=== PATIENT | male | born 1950 | race Caucasian/White ===

== ENCOUNTER 2024-04-08 19:56 | Inpatient (IN) | payer OTHER ==
[~2024-04-08] VITALS: Ht 167.6 cm; Wt 118.0 kg
[~2024-04-08 19:56] MED LIST: ALL DAY ALLERGY10 M3 PO; ALLFEN400 MG PO; ASPIRIN 81M81 MG/TA2 PO; ASPIRIN E.C. 8181 MG PO; COZAAR 25MG25 MG/TAB PO; DEMADEX10 MG PO; EPA FISH OIL1 SGL PO; FLAGYL500 MG PO; FOLIC ACID 11 MG/TA1 PO; IPRATROPIUM BROM3 M1 IH; JARDIANCE25; JARDIANCE25 PO; LOPRESSOR100 MG PO; MELATONIN3 M1 PO; MELATONIN5 M1 SL; MIRALAX PA17 GM/Dose PO; MUCUS RELIEF400 M1 PO; MULTI VITAMINS1 TAB PO; OMEGA-3 1000 MG1 CAP PO; OMNICEF 300MG300 MG PO; OPTIVE SENSITI0.4 ML OP; PERIACTIN 4MG TA4 MG PO; PREDNISONE20 MG PO; REFRESH TEARS 330 ML OP; SODIUM BICARBO650 MG PO; TYLENOL 500MG500 MG PO; ZOCOR 10MG10 MG PO; ZOCOR 20MG20 MG PO; ZOLOFT 100MG100 MG PO
[2024-04-09] MEDS ORDERED: Gadoterate 20 ML VIAL IV ONE (14:00)
--- NOTE | 2024-04-14 03:56 | NUR ---
An Electronic Health Record (EHR) downtime even occurred during this patient's care. For legal medical record information generated during the downtime period, please reference the patient's legal medical record. Paper or scanned documentation has been incorporated into the legal medical record which is maintained in accordance with Health Information Management (HIM) and record retention policies.
[2024-04-14 04:00] VITALS: BP 154/82; PULSE 70; TEMP 98.5
[2024-04-14] MEDS ORDERED: Albuterol/Ipratropium 3 MG-0.5 MG/3 ML Neb Soln IH PRN (05:00)
[2024-04-14] MEDS ORDERED: Acetaminophen 325 MG TAB PO PRN (05:00)
[2024-04-14] MEDS ORDERED: Morphine 4 MG/ML VIAL IV PRN (05:15)
[2024-04-14] MEDS ORDERED: Benzonatate 100 MG CAP PO PRN (05:15)
[2024-04-14] MEDS ORDERED: Docusate Sodium 100 MG CAP PO PRN (05:15)
[2024-04-14] MEDS ORDERED: Sennosides/Docusate 8.6-50 MG TAB PO PRN (05:15)
[2024-04-14] MEDS ORDERED: hydrALAZINE 20 MG/ML 1 ML VIAL IV PRN (05:15)
[2024-04-14] MEDS ORDERED: Albuterol/Ipratropium 3 MG-0.5 MG/3 ML Neb Soln IH SCH (07:00)
[2024-04-14] MEDS ORDERED: Formoterol Neb Soln 20 MCG/2 ML UD IH SCH (07:00)
[2024-04-14] MEDS ORDERED: Albuterol 0.083% Neb Soln 2.5 MG/3 ML UD IH SCH (07:00)
[2024-04-14] MEDS ORDERED: Budesonide Neb Susp 0.5 MG/2 ML AMP IH SCH (07:00)
[2024-04-14 07:22] VITALS: BP 124/69; PULSE 72; TEMP 97.6
[2024-04-14] MEDS ORDERED: Insulin Lispro (HumaLOG) SQ SCH (08:00)
[2024-04-14] MEDS ORDERED: predniSONE 10 MG TAB PO SCH (08:00)
[2024-04-14] MEDS ORDERED: Heparin Sodium 5000 UNITS/ML SUBCUTANEOUSLY Q8HR SQ SCH (08:00)
--- NOTE | 2024-04-14 08:26 | NUR ---
PATIENT SITTING UP IN CHAIR EATING BREAKFAST. PATIENT APPEARS TO BE HAVING DYSPNEA AT REST. THIS NURSE CHECKED PATIENT'S O2 SAT. 02 WAS AT 88% ON RA. THIS NURSE APPLIED 2L OF 02 VIA NC. 02 INCREASED TO 93%. PATIENT IS ALSO PRODUCING THICK, YELLOW SPUTUM. SCHEDULED DOXY AND MUCINEX ADMINISTERED PER JAN. ALL NEEDS MET AT THIS TIME. CALL LIGHT WITHIN REACH. WILL MONITOR
[2024-04-14] MEDS ORDERED: Losartan 25 MG TAB PO SCH (09:00)
[2024-04-14] MEDS ORDERED: Sodium Bicarbonate 650 MG TAB PO SCH (09:00)
[2024-04-14] MEDS ORDERED: Loratadine 10 MG TAB PO SCH (09:00)
[2024-04-14] MEDS ORDERED: Metoprolol Tartrate 50 MG TAB PO SCH (09:00)
[2024-04-14] MEDS ORDERED: Doxycycline Monohydrate 100 MG CAP PO SCH (09:00)
[2024-04-14] MEDS ORDERED: LIPITOR 80MG80 MG PO (09:13)
[2024-04-14] MEDS ORDERED: PREDNISONE10 MG PO (09:15)
[2024-04-14 11:13] VITALS: BP 138/93; PULSE 65; TEMP 97.9
--- NOTE | 2024-04-14 11:37 | NUR ---
THIS NURSE GAVE PATIENT DISCHARGE INSTRUCTIONS. ALL QUESTIONS ANSWERED. THIS NURSE DISCONTINUED INT SITE FOR DISCHARGE. NO REDNESS, DRAINAGE, OR EDEMA NOTED. PATIENT DENIES QUESTIONS OR CONCERNS.
--- NOTE | 2024-04-14 12:00 | NUR ---
PATIENT ESCORTED OFF UNIT VIA WHEELCHAIR. ALL BELONGINGS WITH PATIENT.
--- NOTE | 2024-04-14 13:15 | NUR ---
face worker was notified by the [facility] that patient will have authorization for PT and OT with his current home health agency - [facility]. SW contacted patient's son whom explained he would be available to be home and assist patient out of the vehicle when he returns home from hospital but he is unable to drive to [place]. SW explained they can arrange an uber to transport. SW met with patient and notified him that his son will be home to assist with him getting out of the vehicle. SW reviewed the important message from Medicare with patient. Patient understood, signed form. SW made copy, placed original in chart and provided copy to patient. SW faxed discharge orders and clinical updates to [facility]. Discharge plan: Home with Home Health - [facility]
[2024-04-14] MEDS ORDERED: Cyproheptadine 4 MG TAB PO SCH (21:00)
[2024-04-14] MEDS ORDERED: Sertraline 100 MG TAB PO SCH (21:00)
[2024-04-14] MEDS ORDERED: Atorvastatin 80 MG TAB PO SCH (21:00)
[2024-04-15] MEDS ORDERED: predniSONE 10 MG TAB PO SCH (09:00)
[2024-04-17] MEDS ORDERED: predniSONE 20 MG TAB PO SCH (09:00)
== END 2024-04-14 12:00 | disposition home health service (06) | DRG 64 ==
LOC: COL.ER 19:56 → MEDICAL 23:01 → COL.ER 23:01 → MEDICAL 04-14 12:00
PROVIDERS: ADMIT Internal Medicine
DX: I63.9 Cerebral infarction, unspecified (principal); J96.01 Acute respiratory failure with hypoxia; G81.94 Hemiplegia, unspecified affecting left nondominant side; J44.1 Chronic obstructive pulmonary disease with (acute) exacerbation; N17.9 Acute kidney failure, unspecified; I13.0 Hypertensive heart and chronic kidney disease with heart failure and stage 1 through stage 4 chronic kidney disease, or unspecified chronic kidney disease; R27.0 Ataxia, unspecified; I50.9 Heart failure, unspecified; N18.9 Chronic kidney disease, unspecified; I25.10 Atherosclerotic heart disease of native coronary artery without angina pectoris; Z95.5 Presence of coronary angioplasty implant and graft; G47.33 Obstructive sleep apnea (adult) (pediatric); E78.5 Hyperlipidemia, unspecified; E11.40 Type 2 diabetes mellitus with diabetic neuropathy, unspecified; Z79.4 Long term (current) use of insulin; K21.9 Gastro-esophageal reflux disease without esophagitis; F43.10 Post-traumatic stress disorder, unspecified; F32.A Depression, unspecified
CPT/HCPCS: A9500-JZ; A9575; J1815; J2704; J7512

== ENCOUNTER 2024-04-21 17:00 | Observation (INO) | payer OTHER ==
[~2024-04-21] VITALS: Ht 167.6 cm; Wt 110.6 kg
[~2024-04-21 17:00] MED LIST changes: +LIPITOR 80MG80 MG PO; +PREDNISONE10 MG PO
[2024-04-21] MEDS ORDERED: Albuterol/Ipratropium 3 MG-0.5 MG/3 ML Neb Soln IH SCH (17:15)
[2024-04-21 17:36] LABS: CALCIUM 9.1 mg/dL (8.4-10.2); CREATININE, serum 2.78 mg/dL (0.72-1.25); POTASSIUM 5.4 mEq/L (3.5-4.5); TOTAL PROTEIN 6.5 g/dl (6.2-8.1)
[2024-04-21 17:39] LABS: BASO % 0.1 % (0.0-2.0); EOS % 0.2 % (0.0-4.0); GRAN # 12.3 K/mm3 (1.4-6.5); HEMOGLOBIN 11.4 g/dl (13.5-18.0); LYMPH # 0.9 K/mm3 (1.2-3.4); LYMPH % 6.4 % (20.0-51.0); MEAN CELL VOLUME 88 fl (80.0-100.0); MEAN CORPUSCULAR HEMOGLOBIN 29 pg (27-31); MEAN CORPUSCULAR HGB CONC 32 g/dl (33.0-37.0); MEAN PLATELET VOLUME 10.4 fl (7.4-10.4); MONO # 0.6 K/mm3 (0.1-0.6); MONO % 4.4 % (1.7-9.3); PLATELET COUNT 251 K/mm3 (130-400); REDCELL DISTRIBUTION WIDTH-CV 13.9 % (11.5-14.5)
[2024-04-21 17:42] LABS: HEMATOCRIT 35.2 % (42.0-52.0); TROPONIN-I 0.012 ng/mL (0.00-0.033)
[2024-04-21 18:02] LABS: BILIRUBIN,TOTAL 0.7 mg/dL (0.2-1.2)
[2024-04-21 18:51] LABS: COLLECTION METHOD CLEAN CATCH
[2024-04-21 18:59] LABS: URINE APPEARANCE CLEAR (CLEAR/HAZY); URINE BLOOD NEGATIVE (NEGATIVE); URINE COLOR YELLOW (YELLOW); URINE GLUCOSE 3+ (NEGATIVE); URINE KETONE NEGATIVE (NEGATIVE); URINE NITRATE NEGATIVE (NEGATIVE); URINE PROTEIN(semi-quant) 2+ (NEGATIVE)
[2024-04-21] MEDS ORDERED: cefTRIAXone 1 G in Water For Injection,Sterile 10 ML IV ONE (19:00)
[2024-04-21] MEDS ORDERED: Azithromycin 500 MG in NS 250 ML IV SCH (19:15)
[2024-04-21] MEDS ORDERED: Furosemide 40 MG/4 ML VIAL IV ONE (19:15)
[2024-04-21] MEDS ORDERED: Acetaminophen 500 MG TAB PO PRN (20:30)
[2024-04-21] MEDS ORDERED: Ondansetron 4 MG/2 ML VIAL IV PRN (20:30)
[2024-04-21] MEDS ORDERED: Polyethylene Glycol 3350 17 GM PDS PO PRN (20:30)
[2024-04-21] MEDS ORDERED: predniSONE 20 MG TAB PO SCH (20:33)
--- NOTE | 2024-04-21 20:35 | NUR ---
Report recieved from Elizabeth in ED. No questions at this time.
--- NOTE | 2024-04-21 20:45 | NUR ---
Patient arrived to room 218 with belongings at this time. Denies any pain at this time. Food provided. Assessment and med rec complete. Patient has a large, dark bruise all the way across his chest from loop recorder placement and some bruising to lower abd from heparin injections from previous visit. Patient also has some bruising to his feet. Oriented patient to room. Call light and personal items in reach. Bed in low position and bed alarm on.
[2024-04-21 20:50] VITALS: BP 152/76; PULSE 75; TEMP 97.9
[2024-04-21 20:55] VITALS: BP_SYST 158
[2024-04-21] MEDS ORDERED: Insulin Lispro (HumaLOG) SQ SCH (21:10)
[2024-04-21] MEDS ORDERED: Dextrose (Glucose) 15 GM (4 x 3.75 GM) Chewable TABLET PACK PO PRN (21:15)
[2024-04-21] MEDS ORDERED: Dextrose 50% Water 25 GM/50 ML SYRINGE IV PRN (21:15)
[2024-04-21] MEDS ORDERED: Glucagon 1 MG VIAL IM PRN (21:15)
[2024-04-21 23:30] VITALS: BP 158/84; PULSE 77; TEMP 98.5
[2024-04-22] VITALS (13 sets, daily range): BP systolic 126–177; BP diastolic 61–84; PULSE 63–81; TEMP 97.6–98.1
[2024-04-22] MEDS ORDERED: Heparin 5,000 UNITS/ML 1 ML VIAL SQ SCH
--- NOTE | 2024-04-22 05:10 | NUR ---
Assissted patient to bathroom and back to bed x1 assisst w/ walker. Patient is unsteady but can walk with walker. No events over night. Call light and personal items in reach. Bed in low position and bed alarm on.
[2024-04-22] MEDS ORDERED: Albuterol/Ipratropium 3 MG-0.5 MG/3 ML Neb Soln IH SCH (06:44)
[2024-04-22] MEDS ORDERED: Albuterol 0.083% Neb Soln 2.5 MG/3 ML UD IH PRN (06:45)
[2024-04-22 06:50] LABS: MEAN CELL VOLUME 88 fl (80.0-100.0); MEAN CORPUSCULAR HEMOGLOBIN 29 pg (27-31); MEAN CORPUSCULAR HGB CONC 33 g/dl (33.0-37.0); MEAN PLATELET VOLUME 10.3 fl (7.4-10.4); PLATELET COUNT 225 K/mm3 (130-400); RED BLOOD COUNT 3.78 M/mm3 (4.20-5.60); REDCELL DISTRIBUTION WIDTH-CV 13.5 % (11.5-14.5)
[2024-04-22 06:52] LABS: HEMATOCRIT 33.1 % (42.0-52.0)
[2024-04-22] MEDS ORDERED: Budesonide Neb Susp 0.5 MG/2 ML AMP IH SCH (07:00)
[2024-04-22] MEDS ORDERED: Formoterol Neb Soln 20 MCG/2 ML UD IH SCH (07:00)
[2024-04-22 07:13] LABS: CALCIUM 9.2 mg/dL (8.4-10.2); CREATININE, serum 2.81 mg/dL (0.72-1.25); POTASSIUM 5.4 mEq/L (3.5-4.5)
[2024-04-22 08:32] LABS: BAND 4 % (0-10); LYMPHOCYTE 6 % (20.0-51.0); NEUTROPHILS 90 % (42.0-75.2); PLATELET ESTIMATE NORMAL (NORMAL)
--- NOTE | 2024-04-22 08:50 | NUR ---
Patient resting in bed, alert and oriented x 4, weakness on left side. States uses a wheelchair at home but walker for support and bedside commode. RA. Finished all his breakfast tray. Assessment completed, meds given. No further needs at this time. Call light within reach.
[2024-04-22] MEDS ORDERED: LIPITOR 80MG80 MG PO (10:15)
[2024-04-22] MEDS ORDERED: PROAIR HFA0.09 MG/AC IH (10:35)
[2024-04-22] MEDS ORDERED: TESSALON P100 MG/CAP PO (10:36)
[2024-04-22] MEDS ORDERED: Metoprolol Tartrate 50 MG TAB PO SCH (12:06)
[2024-04-22] MEDS ORDERED: Losartan 25 MG TAB PO SCH (12:06)
[2024-04-22] MEDS ORDERED: Benzonatate 100 MG CAP PO PRN (12:15)
[2024-04-22] MEDS ORDERED: Carboxymethylcellulose PF Ophth 0.4 ML DROPPERETTE OP PRN (12:15)
[2024-04-22] MEDS ORDERED: Melatonin 3 MG TAB PO PRN (12:15)
[2024-04-22] MEDS ORDERED: guaiFENesin Oral Soln 200 MG/10 ML UD PO PRN (12:15)
--- NOTE | 2024-04-22 12:57 | NUR ---
Door Trimmer and Letty Carrasco met with patient to discuss discharge planning. Patient lives in an apartment here in [place] and stated his son, Buzz sometimes stays with him. Patient goes to the [facility] for primary care and has medications mailed to his home. Patient reported no stairs in or to his apartment and he uses a wheelchair for ambulation. Patient stated he is independent with transfers and all other ADLS. Patient does have issues with transportation and stated that has been ongoing. Patient has both [employer] and Medicare. Patient is still getting Home Health services through [facility] and plans to return home at time of discharge. Letty Carrasco contacted [facility] and faxed updates. JAMSHID also contacted JAMSHID Candelario at the [facility] and left a message. Discharge Plan: Home with [facility], may need assistance with transportation home
--- NOTE | 2024-04-22 13:55 | NUR ---
Initial visit (this stay): Patient very personable and thanked Therapeutic Support Staff for checking in on him again. Therapeutic Support Staff asked how he is getting along and he said that he needs to be here. Therapeutic Support Staff said she knows he must need to be and he can be sure when he is well enough to go home "We" will let him go. Therapeutic Support Staff wished him well and will keep Jose A in her prayers.
[2024-04-22] MEDS ORDERED: Azithromycin 500 MG in NS 250 ML IV SCH (19:00)
[2024-04-22] MEDS ORDERED: cefTRIAXone 1 G in Water For Injection,Sterile 10 ML IV SCH (19:00)
[2024-04-22] MEDS ORDERED: Atorvastatin 80 MG TAB PO SCH (21:00)
[2024-04-22] MEDS ORDERED: Sodium Bicarbonate 650 MG TAB PO SCH (21:00)
[2024-04-22] MEDS ORDERED: Cyproheptadine 4 MG TAB PO SCH (21:00)
--- NOTE | 2024-04-22 22:10 | NUR ---
Patient resting in chair. Assissted patient to bathroom and back to bed. Denies any pain. Needs met. Assessment complete. IV in left forearm flushes easily without complications. Call light and personal items in reach. Bed in low position and bed alarm on.
[2024-04-23] VITALS (8 sets, daily range): BP systolic 128–178; BP diastolic 67–80; PULSE 58–70; TEMP 97.4–97.6
[2024-04-23] MEDS ORDERED: hydrALAZINE 20 MG/ML 1 ML VIAL IV PRN (04:45)
[2024-04-23 06:50] LABS: BASO % 0.1 % (0.0-2.0); EOS # 0.2 K/mm3 (0.0-0.7); EOS % 1.4 % (0.0-4.0); GRAN % 76.9 % (42.2-75.2); HEMOGLOBIN 10.8 g/dl (13.5-18.0); LYMPH # 2.2 K/mm3 (1.2-3.4); MEAN CELL VOLUME 88 fl (80.0-100.0); MEAN CORPUSCULAR HEMOGLOBIN 29 pg (27-31); MEAN CORPUSCULAR HGB CONC 33 g/dl (33.0-37.0); MONO # 0.8 K/mm3 (0.1-0.6); MONO % 5.6 % (1.7-9.3); PLATELET COUNT 226 K/mm3 (130-400); RED BLOOD COUNT 3.79 M/mm3 (4.20-5.60); REDCELL DISTRIBUTION WIDTH-CV 13.7 % (11.5-14.5)
[2024-04-23 06:59] LABS: HEMATOCRIT 33.2 % (42.0-52.0)
[2024-04-23 07:04] LABS: CALCIUM 8.6 mg/dL (8.4-10.2); CREATININE, serum 2.57 mg/dL (0.72-1.25); POTASSIUM 4.6 mEq/L (3.5-4.5)
[2024-04-23] MEDS ORDERED: Folic Acid 1 MG TAB PO SCH (09:00)
[2024-04-23] MEDS ORDERED: Sertraline 100 MG TAB PO SCH (09:00)
[2024-04-23] MEDS ORDERED: Multivitamin TAB PO SCH (09:00)
--- NOTE | 2024-04-23 09:20 | NUR ---
PT SITTING IN CHAIR UPON ENTERING. ASSESSMENT DONE, MEDS GIVEN PER ORDER. PT GIVEN PRN EYE DROPS. PT DENIES PAIN. ECCHYMOSIS NOTED ACROSS PTS CHEST INTO LEFT SIDE AND NOTED TO LOWER ABDOMEN. INT TO LEFT FOREARM PATENT. PT DENIES NEEDS. CHAIR ALARM ON, CALL LIGHT IN REACH.
[2024-04-23] MEDS ORDERED: IPRATROPIUM BROM3 M1 IH (10:57)
[2024-04-23] MEDS ORDERED: MEDROL 4MG DOSPA4 MG PO (11:03)
[2024-04-23] MEDS ORDERED: OMNICEF 300MG300 MG PO (11:03)
--- NOTE | 2024-04-23 12:40 | NUR ---
IV REMOVED. PT DRESSED IN PERSONAL CLOTHES. SOCIAL WORK NOTIFIED THAT PT IS READY TO DISCHARGE AND UBER ORDERED. PT ESCORTED TO UBER VIA WHEELCHAIR
--- NOTE | 2024-04-23 16:33 | NUR ---
[facility] Specialist was notified patient is ready for discharge. JAMSHID arranged for transportation home via Uber and spoke with son, Buzz (ph#[phone]) who will assist patient into the home. JAMSHID contacted [facility] SW, Ann Mayer (ext. [phone]) who advised patient sees Dr. Hodges for primary care and has transportation services to get him to appointments. Patient has prison visits every week and in home medication management/diabetes education. Ann advised she can follow up with patient and do an assessment if patient wishes to have assistance in the home with bathing and dressing. The PCP office will follow up with patient to schedule a follow up. JAMSHID contacted [facility] and faxed discharge orders.
== END 2024-04-23 13:00 | disposition home or self-care (01) ==
LOC: COL.ER 17:00 → MEDICAL 19:09
PROVIDERS: Family Medicine; ADMIT Internal Medicine
DX: J18.9 Pneumonia, unspecified organism (principal); J44.1 Chronic obstructive pulmonary disease with (acute) exacerbation; I50.9 Heart failure, unspecified; N18.9 Chronic kidney disease, unspecified; I44.7 Left bundle-branch block, unspecified; G47.33 Obstructive sleep apnea (adult) (pediatric); J96.01 Acute respiratory failure with hypoxia; I13.0 Hypertensive heart and chronic kidney disease with heart failure and stage 1 through stage 4 chronic kidney disease, or unspecified chronic kidney disease; E11.40 Type 2 diabetes mellitus with diabetic neuropathy, unspecified; E78.5 Hyperlipidemia, unspecified; F32.A Depression, unspecified; F43.10 Post-traumatic stress disorder, unspecified; Z79.84 Long term (current) use of oral hypoglycemic drugs; Z79.82 Long term (current) use of aspirin; Z79.899 Other long term (current) drug therapy; Z95.5 Presence of coronary angioplasty implant and graft; Z87.891 Personal history of nicotine dependence; Z86.73 Personal history of transient ischemic attack (TIA), and cerebral infarction without residual deficits; Z79.4 Long term (current) use of insulin
CPT/HCPCS: A9284; G0378; J0360; J0456; J0696; J1644; J1815; J1940; J7050; J7512